=== PATIENT | female | born 1970 | race Caucasian/White ===

== ENCOUNTER 2018-12-26 13:18 | Inpatient (IN) | payer MEDICAID ==
[~2018-12-26] VITALS: Ht 162.6 cm; Wt 78.5 kg
[2018-12-26 17:03] VITALS: BP 146/89
[2018-12-26] MEDS ORDERED: ZOLPIDEM TARTRATE 10 MG TABLET PO PRN (17:30)
[2018-12-26] MEDS ORDERED: LORazepam 2 MG TABLET PO PRN (17:30)
[2018-12-26] MEDS ORDERED: HALOPERIDOL 5 MG TABLET PO PRN (17:30)
[2018-12-26] MEDS ORDERED: MIRT15 PO (17:39)
[2018-12-26] MEDS ORDERED: OLAN10TA3 PO (17:39)
[2018-12-26] MEDS ORDERED: DULO60CA44 PO (17:39)
[2018-12-26 20:30] VITALS: BP 125/86
[2018-12-26] MEDS ORDERED: ALBUTEROL SULFATE HFA 90 MCG/PUFF 8 GM INHALER IH PRN (21:00)
[2018-12-26] MEDS ORDERED: MAG HYDROX/AL HYDROX/SIMETH ES 30 ML SUSPENSION UDCUP PO PRN (21:00)
[2018-12-26] MEDS ORDERED: PETROLATUM,WHITE 28 GM JELLY TP PRN (21:00)
[2018-12-26] MEDS ORDERED: MAGNESIUM HYDROXIDE SUSPENSION 30 ML UDCUP PO PRN (21:00)
[2018-12-26] MEDS ORDERED: ONDANSETRON HCL 4 MG TABLET PO PRN (21:00)
[2018-12-26] MEDS ORDERED: GuaiFENesin/D-METHORPHAN [SUGAR-FREE] 200-20MG/10 ML SYRUP UDCUP PO PRN (21:00)
[2018-12-26] MEDS ORDERED: DOCUSATE SODIUM 100 MG CAPSULE PO PRN (21:00)
[2018-12-26] MEDS ORDERED: CloNIDine HCL 0.1 MG TABLET PO PRN (21:00)
[2018-12-26] MEDS ORDERED: NICOTINE 14 MG/24 HOUR PATCH TD PRN (21:00)
[2018-12-26] MEDS ORDERED: IBUPROFEN 400 MG TABLET PO PRN (21:00)
[2018-12-26] MEDS ORDERED: LOPERAMIDE HCL 2 MG CAPSULE PO PRN (21:00)
[2018-12-26] MEDS ORDERED: ACETAMINOPHEN 325 MG TABLET PO PRN (21:00)
[2018-12-27 02:34] VITALS: BP 119/76
[2018-12-27 07:09] LABS: BASOPHILS % (AUTO) 0.5 % (0.0-2.0); HEMATOCRIT 39.4 % (36-46); HEMOGLOBIN 13.2 g/dL (12.0-16.0); LYMPHOCYTES # (AUTO) 3.3 K/uL (1.0-4.8); LYMPHOCYTES % (AUTO) 46.7 % (22.0-44.0); MEAN CORPUSCULAR HEMOGLOBIN 31.2 pg (26.0-34.0); MEAN CORPUSCULAR HGB CONC 33.5 G/dL (31.0-37.0); MEAN CORPUSCULAR VOLUME 93 fL (80-100); MONOCYTES # (AUTO) 0.5 K/uL (0.1-1.0); MONOCYTES % (AUTO) 6.4 % (2.0-9.0); NEUTROPHILS # (AUTO) 3.2 K/uL (1.8-7.7); NEUTROPHILS % (AUTO) 45.4 % (40.0-70.0); PLATELET COUNT (AUTO) 253 K/uL (150-450); RED BLOOD CELL COUNT(AUTO) 4.24 MIL/uL (4.00-5.20); RED CELL DISTRIBUTION WIDTH 14.3 % (11.5-14.5)
[2018-12-27 07:49] LABS: ALANINE AMINOTRANSFERASE 36 U/L (12-78); ALBUMIN 3.6 g/dL (3.4-5.0); ALKALINE PHOSPHATASE 74 U/L (46-116); ANION GAP 11 mmol/L (8-16); ASPARTATE AMINOTRANSFERASE 27 U/L (15-37); BILIRUBIN,TOTAL 0.4 mg/dL (0.1-1.0); CALCIUM, TOTAL 9.3 mg/dL (8.8-10.5); CARBON DIOXIDE 26 mmol/L (22-29); CHLORIDE 106 mmol/L (98-107); CHOL/HDL RATIO 3.4 (3.9-5.7); CHOLESTEROL 180 mg/dL (131-200); GLOMERULAR FILTR. RATE CALC > 60 mL/min (>60); GLUCOSE,RANDOM 123 mg/dL (70-110); HCG,QUANTITATIVE 4 mIU/mL (0-6); HDL CHOLESTEROL 53 mg/dL (40-60); LDL CHOL (CALC.) 109 mg/dL (0-130); POTASSIUM 4.1 mmol/L (3.5-5.1); SODIUM SERUM 143 mmol/L (136-145); THYROID STIMULATING HORMONE 0.96 uIU/mL (0.36-3.74); TOTAL PROTEIN, SERUM 6.7 g/dL (6.4-8.2); TRIGLYCERIDES 92 mg/dL (15-150); UREA NITROGEN, BLOOD 15 mg/dL (7-18)
[2018-12-27 08:09] VITALS: BP 137/92
[2018-12-27 08:44] LABS: HEMOGLOBIN A1C 7.7 % (4.5-6.2)
[2018-12-27 16:00] VITALS: BP 117/78
[2018-12-27] MEDS: DULoxetine HCL 60 MG CAPSULE PO SCH (17:21)
[2018-12-27] MEDS: OLANZapine 10 MG TABLET PO SCH (20:26)
[2018-12-27] MEDS: MIRTAZAPINE 15 MG TABLET PO SCH (20:26)
[2018-12-28 00:45] VITALS: BP 118/70
[2018-12-28] MEDS: DULoxetine HCL 60 MG CAPSULE PO SCH ×2 (08:07→16:05)
[2018-12-28 08:11] VITALS: BP 123/89
[2018-12-28 16:08] VITALS: BP 118/78
[2018-12-28] MEDS: MIRTAZAPINE 15 MG TABLET PO SCH (20:01)
[2018-12-28] MEDS: OLANZapine 10 MG TABLET PO SCH (20:02)
[2018-12-29 00:38] VITALS: BP 108/65
[2018-12-29 08:07] VITALS: BP 113/74
[2018-12-29] MEDS: DULoxetine HCL 60 MG CAPSULE PO SCH ×2 (08:08→16:01)
[2018-12-29 16:00] VITALS: BP 119/73
[2018-12-29] MEDS: OLANZapine 10 MG TABLET PO SCH (20:01)
[2018-12-30 00:15] VITALS: BP 121/69
[2018-12-30] MEDS: DULoxetine HCL 60 MG CAPSULE PO SCH (08:10)
[2018-12-30 08:36] VITALS: BP 118/78
== END 2018-12-30 13:30 | disposition home or self-care (01) | DRG 750 ==
LOC: B2S 17:19
PROVIDERS: ADMIT Psychiatry & Neurology Psychiatry; ATTEND Psychiatry & Neurology Psychiatry
DX: F25.0 Schizoaffective disorder, bipolar type (principal); E11.9 Type 2 diabetes mellitus without complications; R45.851 Suicidal ideations; F41.9 Anxiety disorder, unspecified; K59.00 Constipation, unspecified; R76.11 Nonspecific reaction to tuberculin skin test without active tuberculosis; Z91.5 Personal history of self-harm; F32.9 Major depressive disorder, single episode, unspecified; Z79.899 Other long term (current) drug therapy; Z79.890 Hormone replacement therapy
CPT/HCPCS: 83036; 84443; 87081